=== PATIENT | female | born 1970 | race Caucasian/White ===

== ENCOUNTER → 2018-01-16 18:59 | Outpatient (CLI) | payer MEDICARE, MEDICAID, SELFPAY ==
--- NOTE | 2018-01-16 | CYSPIN_PTH ---
PATIENT: TAMIR AMATO LOC: [facility] U#:[id number] AGE/SX: 55/F ROOM: RE01/16/[address]: Dr. Ryan Lowe MD : 1970 BED: DIS: SPEC #: [id number] RECD: 01/16/18 16:00 STATUS: CHARU NITO #: [id number] ANTHONY: 01/16/18 00:[address]: Ryan Loew DEPT: CYTOLOGY RECD BY: Riley Decker ENTERED: 01/17/18 09:35 SP TYPE: CYSPIN FL OTHR DR: [facility] Tissues: Urine Procedures: Pap Stain (control) Special Stain Group II Cytospin Fluid Comments: @ Old specimen number [id number] was changed by GUERLINE on @ 01/17/18 at 0937 for re-use. @ Previously cancelled by GUERLINE on 01/17/18 at 0937. @ Uncancelled by GUERLINE on 01/17/18 at 0937. @ Specimen Rejected Previously [reject]. @ Previous Rejection Reason [reason]. @ Previous Specimen Condition [condition]. @ Specimen number changed from [id number] to [id number] @ on 01/18/18 at 0732 by KIHSOR. HEADER OPERATION: Not noted PRE-OP DIAGNOSIS: Hematuria TISSUE SUBMITTED: Urine for cytology DIAGNOSIS CYTOLOGY Urine for cytology (cytospin): Negative for malignant cells. CANDI:marian 01/18/18 CYTOLOGY STUDY Slides are reviewed. The specimen predominantly consists of benign squamous cells, a few urothelial cells, inflammatory cells and red blood cells. CYTOLOGY GROSS Received is 60 ml of bright yellow, clear fluid labeled with the patient's name and and designated per the requisition as urine. Submitted for cytology preparation. 01/17/18 TC:5 CPT: 29669
[2018-01-16 19:01] LABS: Cytology, Body Fluid / CSF SEE PATHOLOGY REPORT
== END ==
PROVIDERS: Visit Provider Urology
DX: R31.9 Hematuria, unspecified (principal)
CPT/HCPCS: 88108; 88313

== ENCOUNTER 2025-05-15 19:57 | Emergency (ER) | payer MEDICARE, MEDICAID, SELFPAY ==
[2025-05-15 19:57] VITALS: BP 121/81; PULSE 68; RESP 18; TEMP 36.4; O2SAT 99; BMI 27.1
--- NOTE | 2025-05-15 20:07 | ED.RN ---
PT STATES SHE HAS BEEN FEELING SHE IS GOING TO PASS OUT FOR SOME TIME NOW IT HAPPENS WHEN SHE GOES FROM FITTING TO STANDING. SHE FEELS LIKE HER HEART IS GOING TO POUND OUT OF HER CHEST. PT DENIES BLURRED VISION OR CURRENT DUNAWAY.
[2025-05-15 20:49] LABS: Hematocrit 37.5 % (37-47); Hemoglobin 12.6 g/dL (12.0-15.0); Immature Granulocytes Count 0.030 X10^3/uL (0.0-0.0); Mean Corp Hgb Conc 33.6 g/dL (32-36); Mean Corpuscular Volume 92.4 fL (81-99); Mean Platelet Vol. 9.8 fl (6.2-12.0); NRBC Flagged by Analyzer 0 % (0-5); Platelet Count 450 K/mm3 (150-450); RBC Distribution Width CV 14.1 % (11.6-14.6); RBC Distribution Width SD 48.3 fl (35.1-43.9); Red Blood Count 4.06 M/mm3 (4.2-5.4); White Blood Count 9.8 K/mm3 (4.4-11.0)
[2025-05-15 21:21] LABS: Alcohol, Blood (Medical)-Serum < 10.1 mg/dL (<=10.0)
[2025-05-15 21:31] LABS: Anion Gap 12 (5-15); BUN 5 mg/dL (4-19); BUN/Creat Ratio 7.2 RATIO (10-20); Calcium,Total 9.2 mg/dL (7.6-11.0); Carbon Dioxide 23.8 mmol/L (21.0-32.0); Chloride 103 mmol/L (98-108); Estimated Creatinine Clearance 84.07 ml/min (50-250); Glucose 96 mg/dL (70-99); Potassium 4.2 mmol/L (3.3-5.1)
[2025-05-15 21:45] VITALS: BP 113/88; BP 127/78; BP 98/78; PULSE 56; PULSE 67; PULSE 69
--- NOTE | 2025-05-15 21:58 | EDS_ITS ---
[facility] HPI - Psych History of Present Illness Chief Complaint: Dizziness Detail of Chief Complaint: Patient states she is here for dizziness that she defines as lightheadednes Informant: patient and family (Mother told me that head crisis center here.) Onset/Context/Timing Onset: - (Patient was not forthcoming with information. Patient is deceptive.) Context: Uncertain. Please read HPI narrative for detail Conflict: Family Timing: Intermittent Current Severity: Mild Maximum Severity: Severe Worsened by: Situational factors and Alcohol intoxication Relieved by: Nothing Associated Symptoms Associated Symptoms - Psych: Positive for Depressed, Change in Eating, Change in sleeping, Decreased Interest and Suicidal Thoughts (She admits to suicidal thoughts after confrontation. She initially did not mention suicidal thoughts.); Negative for Decreased Concentration, Hopelessness, Grandiosity, Flight of Ideas, Increased activity, Pressured Speech, Agitated, Angry, Hostile, Threatening, Confusion, Paranoia, Visual Hallucinations or Auditory Hallucinations Specific plan (suicidal thought): Crisis social science research assistant told me she has a lethal plan. Narrative Narrative: Patient is a 55-year-old woman. She was sent for crisis because mother called for suicidal thoughts and ideation. She apparently has a plan per the social science research assistant. Patient did not share this with me. She states she is here because of dizziness which she defines as lightheadedness and chest pain. Chest pain is central. There is no associated shortness of breath, diaphoresis, nausea vomiting or radiation. She has no known coronary disease. She denies leg pain or swelling. She denies history of VTE. She has no risk factors for VTE. Patient denies abdominal pain, nausea, vomiting or diarrhea. Patient denies dysuria, frequency, urgency or hematuria. Patient is present stay in her mother's house. She stated her mother house yesterday. Mother bought her a small mattress to sleep on. Prior similar symptoms: No Recent Illness/Hospitalization: No PFSH PFSH Medical History Asthma Allergy/AdvReac Type Severity Reaction Status Date / Time No Known Allergies Allergy Verified 05/15/25 20:08 Surgical History Hx of tonsillectomy History of hysterectomy Social History (Updated 05/15/25 @ 22:[address] Martin Simon MD) household members: other details: Left house because of problems with daughter. Presently residing at mother Smoking Status: Never smoker ROS ROS ED Constitutional Constitutional ED: Denies chills, fever(s), subjective, sweats or weight loss Eyes Eyes: Denies blurry vision, change in vision or diplopia ENT ENT ED: Denies ear pain, rhinorrhea or sore throat Cardiovascular Cardiovascular: Reports chest pain; Denies orthopnea, palpitations, paroxysmal nocturnal dyspnea or racing heartbeat Respiratory/Chest Respiratory/Chest: Denies cough, dyspnea, dyspnea on exertion, orthopnea or paroxysmal nocturnal dyspnea Gastrointestinal Gastrointestinal: Denies abdominal pain, nausea or vomiting Genitourinary Genitourinary ED: Denies dysuria, hematuria or urinary frequency Musculoskeletal Musculoskeletal: Denies arthralgias or myalgias Integumentary Denies rash Neurologic Neurologic: Denies headache(s) or paresthesias Psychiatric Psychiatric: Reports depression and suicidal ideation; Denies anxiety Endocrine Endocrinology: Denies polydipsia, polyphagia or polyuria Hematologic/Lymphatic Hematologic/Lymphatic: Denies easy bleeding or easy bruising EXAM Physical Exam Const Vital Signs: 05/15/25 19:57 05/15/25 21:45 05/15/25 22:14 Temperature 97.6 F L Temperature Source Temporal Pulse Rate 68 66 Pulse Rate [Lying] 56 L Pulse Rate [Sitting (for 1 minute prior to obtaining)] 67 Pulse Rate [Standing (for 1 minute prior to obtaining)] 69 Respiratory Rate 18 18 Blood Pressure 121/81 H 109/85 H Blood Pressure [Lying] 127/78 H Blood Pressure [Sitting (for 1 minute prior to obtaining)] 113/88 H Blood Pressure [Standing (for 1 minute prior to obtaining)] 98/78 Blood Pressure Mean 94 93 Blood Pressure Mean [Lying] 94 Blood Pressure Mean [Sitting (for 1 minute prior to obtaining)] 96 Blood Pressure Mean [Standing (for 1 minute prior to obtaining)] 84 Pulse Ox 99 97 Oxygen Delivery Method Room Air Positive well nourished and well developed Constitutional Narrative: Orthostatic vitals are positive by blood pressure and patient was symptomatic. General Appearance ED: well developed and irritable HEENT Denies moist mucous membranes normocephalic and atraumatic Eyes PERRL and EOMs intact bilaterally Neck no lymphadenopathy, supple and no JVD Resp normal respiratory effort and clear to auscultation bilaterally Cardio S1 normal heart sound, S2 normal heart sound and no murmurs Rate: regular rate Rhythm: regular rhythm GI non-tender, non-distended and no masses Auscultation: normoactive bowel sounds Palpation: soft Back/Spine no CVA tenderness Extremity normal to inspection Extremity Narrative: No evidence of self inflicted injury Neuro oriented x3, CN's II-XII intact bilaterally, no sensory deficits noted and deep tendon reflexes 2+ bilaterally Steve Coma Scale: document GCS findings Spontaneous Obeys Commands Oriented 15 Sensorium / Orientation: alert Psych denies hallucinations, denies homicidal ideation and denies suicidal ideation; Negative for mental status grossly normal, thought process normal, cooperative, affect normal or activity/motor behavior normal Psych Narrative: Mother informing that she wanted to harm self. The social work from [facility] who sent her here for medical clearance informing that she has a lethal plan. Appearance: grossly normal Attitude: engaged, withdrawn and evasive Activity / Motor Behavior: psychomotor slowing and avoids eye contact Speech: slow, soft and other She raises her voice towards her mother. She is agitated towards her mother. Mood & Affect: irritable, labile affect and hostile affect Thought Content: suicidality Attention / Concentration: attention grossly intact and concentration grossly intact Memory / Cognition: memory grossly intact and cognition grossly intact Insight: poor Judgement: poor Skin Skin Narrative: No skin lesions or evidence of self injury. MDM MDM MDM Narrative Medical decision making narrative: Because patient complains of lightheadedness will get orthostatic vital signs. Since orthostatic vital signs were positive she received 1 L of normal saline. Because of her complaint of chest pain cardiac markers were obtained as well as EKG. Workup for medical clearance for hospitalization for psychiatric facility was undertaken as well. Patient was pink slipped by me after discussion with the licensed master social worker from crisis center. They are working on disposition. Lab Data Attestation: I reviewed the patient's lab results. Lab results narrative: Alcohol is less than 10. TSH is slightly elevated 5.77. She may have subclinical hypothyroidism. CBC is unremarkable. Electrolyte panel is unremarkable. Tox screen is negative. Alcohol was not detected. If his second troponin is normal we will have secondary contact crisis. Second troponin was less than 6 as well. This rules out cardiac etiology. In my professional opinion patient is medically cleared for psychiatric admission. Labs: Laboratory Results - last 24 hr 0705/15/25 05/15/25 20:21 20:30 21:40 WBC 9.8 RBC 4.06 L Hgb 12.6 Hct 37.5 MCV 92.4 MCH 31.0 MCHC 33.6 RDW Std Deviation 48.3 H RDW Coeff of Torsten 14.1 Plt Count 450 MPV 9.8 Immature Gran % (Auto) 0.300 Neut % (Auto) 50.1 Lymph % (Auto) 28.8 [place] % (Auto) 7.9 Eos % (Auto) 11.9 H Baso % (Auto) 1.0 Absolute Neuts (auto) 4.9 Absolute Lymphs (auto) 2.81 Nucleated RBC % 0 Sodium 138 Potassium 4.2 Chloride 103 Carbon Dioxide 23.8 Anion Gap 12 BUN 5 Creatinine 0.77 Estim Creat Clear Calc 84.07 Est GFR (MDRD) Non-Af 91 BUN/Creatinine Ratio 7.2 L Glucose 96 Calcium 9.2 Troponin T High Sens < 6 Troponin T Hi Sens 2 Hr < 6 TSH 5.770 H Urine Opiates Screen NEGATIVE U Buprenorphine Qual NEGATIVE Ur Oxycodone Screen NEGATIVE Urine Methadone Screen NEGATIVE Urine Fentanyl Screen NEGATIVE Ur Barbiturates Screen NEGATIVE Ur Phencyclidine Scrn NEGATIVE Ur Amphetamines Screen NEGATIVE U Benzodiazepines Scrn NEGATIVE Urine Cocaine Screen NEGATIVE U Cannabinoids Screen NEGATIVE Ethyl Alcohol < 10.1 EKG Initial EKG: Attestation: I personally reviewed and interpreted this EKG as follows: Interpretation: Sinus Rhythm (Rate is 60. The EKG is normal in my opinion. There is a flipped T wave in lead III which is normal variant. [place] interval is under 44 ms Rickers duration 82 ms. QT duration 444 ms. Miracle is normal) Management Discussion w/another healthcare provider: line assembly utility worker/Case management (Working on dual placement for drug behavior with benzodiazepines and depression with suicidal ideation.) Discharge Plan Triage Chief Complaint: Dizziness ED Provider: Martin Simon Dx/Rx/DC Orders Clinical Impression: Depression with suicidal ideation, Drug-seeking behavior, Elevated TSH, Non- cardiac chest pain, Orthostatic hypotension Primary Care Provider: Rj Farmer Referrals: Rj Farmer MD [Primary Care Provider] - Print Language: Italian Disposition Disposition: Psychiatric Hospital or Unit
[2025-05-15 22:07] LABS: Troponin T High Sensitivity < 6 ng/L (<=14)
[2025-05-15] MEDS: 0.9% Normal Saline (1000mL) 1,000 ML 1000 ML IV (22:10)
[2025-05-15 22:14] VITALS: BP 109/85; PULSE 66; RESP 18; O2SAT 97
[2025-05-15 22:32] LABS: Barbiturate Urine NEGATIVE (< 200 ng/mL); Benzodiazepine Urine NEGATIVE (< 200 ng/mL); PCP Urine NEGATIVE (< 25 ng/mL); THC Urine NEGATIVE (< 50 ng/mL)
[2025-05-15 23:14] LABS: Troponin T High Sens 2 HR < 6 ng/L (<=14)
[2025-05-16 01:42] VITALS: BP 100/78; PULSE 71; RESP 16; O2SAT 97
[2025-05-16 01:45] VITALS: BP 100/78; PULSE 77; RESP 16; TEMP 36.5; O2SAT 98
== END 2025-05-16 02:33 ==
PROVIDERS: Emergency Provider Emergency Medicine; PCP Family Medicine; Referring Provider Emergency Medicine; Visit Provider Emergency Medicine
DX: R42 Dizziness and giddiness (principal); I95.1 Orthostatic hypotension; R07.89 Other chest pain; R45.851 Suicidal ideations; F32.A Depression, unspecified; Z72.89 Other problems related to lifestyle; R94.6 Abnormal results of thyroid function studies; Z90.710 Acquired absence of both cervix and uterus
CPT/HCPCS: 80048; 80307; 82077; 84443; 84484; 85025; 93005; 96360; 99285